=== PATIENT | male | born 2000 | race Caucasian/White ===

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

== ENCOUNTER 2022-01-25 00:35 | Emergency (ER) | payer MEDICAID, OTHER ==
[~2022-01-25] VITALS: Ht 182.9 cm; Wt 96.6 kg
[2022-01-25 00:44] VITALS: BP 123/70
--- NOTE | 2022-01-25 00:46 | NUR ---
PT AMBULATED TO BED 9
--- NOTE | 2022-01-25 00:50 | NUR ---
ERMD AT BEDSIDE EXAMINING PT
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
--- NOTE | 2022-01-25 00:57 | NUR ---
PT TAKEN TO XRAY
[2022-01-25] MEDS ORDERED: NAPR-54 PO (01:15)
--- NOTE | 2022-01-25 01:20 | NUR ---
ERMD AT BEDSIDE DISCUSSING PT RESULTS
[2022-01-25 01:22] VITALS: BP 120/71
--- NOTE | 2022-01-25 01:23 | NUR ---
Patient discharged with v/s stable. Written and verbal after care instructions given and explained. Patient alert, oriented and verbalized understanding of instructions. Ambulatory with steady gait. All questions addressed prior to discharge. ID band removed. Patient advised to follow up with PMD. Rx of NAPROSYN given. Patient educated on indication of medication including possible reaction and side effects. Opportunity to ask questions provided and answered. VSS, A/OX4, UNLABORED BREATYHING, AMBULATORY, AND CALM DEMEANOR. DISCHARGED BY DR CARBAJAL.
== END 2022-01-25 01:22 | disposition home or self-care (01) ==
LOC: MED 00:35
DX: S30.850A Superficial foreign body of lower back and pelvis, initial encounter (principal); J45.909 Unspecified asthma, uncomplicated; Z79.899 Other long term (current) drug therapy; W45.8XXA Other foreign body or object entering through skin, initial encounter; Y93.89 Activity, other specified; Y92.89 Other specified places as the place of occurrence of the external cause; Y99.8 Other external cause status
CPT/HCPCS: 71046; 99283